=== PATIENT | female | born 1970 | race Caucasian/White ===

== ENCOUNTER 2020-08-20 07:40 | Outpatient (CLI) | payer OTHER, SELFPAY ==
--- NOTE | ~2020-08-20 | MM_ITS ---
EXAMINATION: MM screening cindy BI w lg HISTORY: Screening mammogram, family history of breast cancer in her mother. TECHNIQUE: Craniocaudal and mediolateral oblique 3-D tomosynthesis images were obtained and synthetic 2-D images were generated. CAD analysis was submitted and interpreted. COMPARISON: 08/06/2019, 09/22/2018, 09/20/2017, 09/13/2016 BREAST PARENCHYMAL COMPOSITION: The breasts are almost entirely fatty. FINDINGS: There are stable asymmetry in the outer right breast on the craniocaudal view. There is no evidence of suspicious mass, calcification, or architectural distortion to suggest malignancy in eith er breast. There has been no suspicious interval change. IMPRESSION: 1. No mammographic evidence of malignancy. 2. Recommend routine screening mammography in one year. BI-RADS Category 2: Benign finding(s). Reviewed, dictated and finalized at location A. ERLIGHT DEVELOPER
== END 2020-08-20 07:41 | disposition home or self-care (01) ==
PROVIDERS: PCP Family Medicine
DX: Z12.31 Encounter for screening mammogram for malignant neoplasm of breast (principal)
CPT/HCPCS: 77063; 77067

== ENCOUNTER 2021-12-24 07:53 | Outpatient (CLI) | payer OTHER, SELFPAY ==
--- NOTE | ~2021-12-24 | MM_ITS ---
EXAMINATION: MM screening cindy BI w lg HISTORY: Screening TECHNIQUE: Craniocaudal and mediolateral oblique 3-D tomosynthesis images were obtained and synthetic 2-D images were generated. CAD analysis was submitted and interpreted. COMPARISON: Comparison to multiple prior studies sequentially, with oldest reviewed study dated 09/09. BREAST PARENCHYMAL COMPOSITION: There are scattered areas of fibroglandular density. FINDINGS: There is no evidence of suspicious mass, calcification, or architectural distortion to sugg est malignancy in either breast. There has been no suspicious interval change. IMPRESSION: 1. No mammographic evidence of malignancy. 2. Recommend routine screening mammography in one year. BI-RADS Category 1: Negative Reviewed, dictated and finalized at location A.
== END 2021-12-24 07:54 | disposition home or self-care (01) ==
PROVIDERS: PCP Family Medicine; Visit Provider Family Medicine
DX: Z12.31 Encounter for screening mammogram for malignant neoplasm of breast (principal)
CPT/HCPCS: 77063; 77067

== ENCOUNTER 2023-07-11 07:16 | Outpatient (CLI) | payer BC, OTHER, SELFPAY ==
--- NOTE | ~2023-07-11 | MM_ITS ---
EXAMINATION: MM screening cindy BI w lg HISTORY: Screening mammogram TECHNIQUE: Craniocaudal and mediolateral oblique 3-D tomosynthesis images were obtained and synthetic 2-D images were generated. CAD analysis was submitted and interpreted. COMPARISON: 12/24/2021, 08/20/2020 bilateral screening mammogram examinations BREAST PARENCHYMAL COMPOSITION: The breasts are almost entirely fatty. FINDINGS: There is no evidence of suspicious mass, calcification, or architectural distortion to sugg est malignancy in either breast. There has been no suspicious interval change. IMPRESSION: 1. No mammographic evidence of malignancy. 2. Recommend routine screening mammography in one year. BI-RADS Category 1: Negative Reviewed, dictated and finalized at location A. ITY ASSURANCE INTERN
== END 2023-07-11 07:17 | disposition home or self-care (01) ==
LOC: ANHIMG 07:20
PROVIDERS: PCP Family Medicine; Visit Provider Family Medicine
DX: Z12.31 Encounter for screening mammogram for malignant neoplasm of breast (principal)
CPT/HCPCS: 77063; 77067

== ENCOUNTER 2024-12-26 07:45 | Outpatient (CLI) | payer BC, OTHER, SELFPAY ==
--- NOTE | ~2024-12-26 | MMUS_ITS ---
EXAMINATION: MM diagnostic cindy BI w lg, US breast BI complete HISTORY: Nipple discharge TECHNIQUE: Additional 3-D tomosynthesis images of the breasts were performed and synthetic 2-D images were generated. CAD analysis was submitted and interpreted. High resolution bilateral complete breas t ultrasound was performed. COMPARISON: Comparison to multiple prior studies sequentially, with oldest reviewed study dated 01/2018. BREAST PARENCHYMAL COMPOSITION: Not Dense: The breasts are almost entirely fatty. FINDINGS: MAMMOGRAPHIC FINDINGS: The breasts are stable. No new masses, calcifications or architectural distortion in either breast to suggest malignancy. ULTRASOUND: Complete US of all 4 quadrants of the breast/s and retroareolar region was reviewed. Normal heterogen eous echotexture without focal solid or cystic mass. IMPRESSION: 1. No evidence for malignancy in either breast. Recommend follow-up clinical management for nipple di scharge. 2. Routine yearly screening mammogram and regular clinical breast examination are recommended. BI-RADS Category 1: Negative Reviewed, dictated and finalized at location A. IMPRESSION: 1. No evidence for malignancy in either breast. Recommend follow-up clinical ma nagement for nipple discharge. 2. Routine yearly screening mammogram and regular clinical breast examination a re recommended. BI-RADS Category 1: Negative
--- OUTSIDE RECORDS SUMMARY | 2024-12-26 07:51 | XMS_ITS | Encounter Summary ---
Author Organization [employer] Address 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
--- OUTSIDE RECORDS SUMMARY | 2024-12-26 07:51 | XMS_ITS | Encounter Summary ---
Author Organization [employer] Address [address] [place] [address] Care Team Providers Care Volunteer Recruitment Coordinator Name Role Phone Frida Hurtado MD Primary Care Provider [phone] Encounter Details Date Type Department Care Team (Latest Contact Info) Description 01/10/1999 Inpatient Historical [facility] PATIENT IN A BED [place], Mireya Deborah, [facility] First-degree perineal laceration, with delivery (Primary Dx) Social History Tobacco Use Types Packs/Day Years Used Date Smoking Tobacco: Never Assessed Comments Unknown Sex and Gender Information Value Date Recorded Sex Assigned at Not on file 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
--- OUTSIDE RECORDS SUMMARY | 2024-12-26 07:51 | XMS_ITS | Data Portability ---
Author Organization [facility] [employer] , [facility] Address [address] [place] [address] Assessment No assessment recorded. Plan of Treatment Reminders Order Date Submit Date Provider Last Modified By Organization Details Last Modified Time Details Appointments None recorded. Lab HPV E6+E7 mRNA, qualitative PCR, cervix 2023 024 Ya[facility] Merrill, [address] [place], [address], 4 13:45:45 pap, LB 2023 024 [facility], [address] [place], [address], 4 17:28:44 HPV E6+E7 mRNA, qualitative PCR, cervix 2021 022 YaSabe Merrill, [address] [place], [address], 2 15:56:20 pap, LB 2021 022 [facility], [address] [place], [address], 2 08:14:56 Referral None recorded. Procedures None recorded. Surgeries None recorded. Imaging None recorded. Medication Orders None recorded. Patient TargetsNo targets recorded. Patient Instructions Encounter Date Encounter Id Patient Instructions Last Modified By Organization Details Last Modified Time 01/05/2022 [id number] learning about healthy weight Not available 01/05/2022 17:00:55 12/13/2023 [id number] Patient Health Questionnaire-9* [email or web address] Not available 12/20/2023 18:12:09 body mass index: care instructions Not available 12/13/2023 17:11:41 eating healthy foods: care instructions Not available 12/13/2023 17:11:41 general health care education Not available 12/13/2023 17:11:41 Reason for Referral None Reported. Results Created Date Observation Date Name Description Value Unit Range Abnormal Flag Note LastModifiedBy Organization Detail LastModifiedTime 12/16/19 24 12/16/2023 HPV HIGH RISK HPV high risk Negati ve negati ve normal The HPV High Risk assay is inten ded for use as co-te sting with cytol ogy and not as a subst itute for regul ar cervi neli cytol ogy scree santosh. This assay is not inten ded for use as a scree santosh devic e for women under age 30 with greta l cervi neli cytol ogy. Not Available [address], [address], 12/16/2023 13:45:44 01/07/20 22 01/08/2022 HPV HIGH RISK HPV high risk Negati ve negati ve normal The HPV High Risk assay is inten ded for use as co-te sting with cytol ogy and not as a subst itute for regul ar cervi neli cytol ogy scree santosh. This assay is not inten ded for use as a scree santosh devic e for women under age 30 with greta l cervi neli cytol ogy. Not Available [address], [address], 01/08/2022 15:56:19 01/07/20 22 01/13/2022 THINP REP TIS PAP clinical information: normal Infor matio n not provi ded Not Available [facility] [address] [place], [address], 01/13/2022 08:14:55 01/07/20 22 01/13/2022 THINP REP TIS PAP LMP: normal INFOR MATIO N NOT PROVI DED Not Available [facility] [address], [place], [address], 01/13/2022 08:14:55 01/07/20 22 01/13/2022 THINP REP TIS PAP prev. Pap: normal INFOR MATIO N NOT PROVI DED Not Available [address] [address] [place], [address], 01/13/2022 08:14:55 01/07/20 22 01/13/2022 THINP REP TIS PAP prev. BX: normal INFOR MATIO N NOT PROVI DED Not Available [address] [address] [address] , [place], [address], 01/13/2022 08:14:55 01/07/20 22 01/13/2022 THINP REP TIS PAP source: normal Cervi x Not Available [address] [place], [address], 01/13/2022 08:14:55 01/07/20 22 01/13/2022 THINP REP TIS PAP statement of adequacy: normal Satis facto ry for evalu ation . Endoc ervic al/tr ansfo rmati on zone compo nent prese nt. Age and/o r menst rual statu s not provi ded Not Available [address] [address] [place], [address], 01/13/2022 08:14:55 01/07/20 22 01/13/2022 THINP REP TIS PAP interpretati on/result: normal Negat maricruz for intra epith elial lesio n or malig ede . Not Available [address] [place], [address], 01/13/2022 08:14:55 01/07/2001/13/2022 THINP REP TIS PAP comment: normal This Pap test has been evalu ated with compu ter guilherme mauri techn ology . Not Available [address] [place], [address], 01/13/2022 08:14:55 01/07/20 22 01/13/2022 THINP REP TIS PAP cytotechnolo gist: normal KMS, CT( CP) CT Scree santosh locat ion: [address] [address] [place] [address] Not Available [address] [address] [place], [address], 01/13/2022 08:14:55 01/07/20 22 01/13/2022 THINP REP TIS PAP review cytotechnolo gist: normal LMT, CT( CP) CT scree santosh locat ion: [address] [address] [place] [address] Not Available [address] [address] [place], [address], 01/13/2022 08:14:55 01/07/20 22 01/13/2022 THINP REP TIS PAP comment EXPLA NATOR Y NOTE: The Pap is a scree santosh test for cervi neli cance r. It is not a diagn ostic test and is subje ct to false negat maricruz and false posit maricruz resul ts. It is most relia ble when a satis facto ry sampl e, regul vitaly obtai tr, is submi tted with relev ant clini neli findi ngs and histo ry, and when the Pap resul t is evalu ated along with histo joey and curre nt clini nlei infor matio n. Not Available [address] [address] , [place], [address], 01/13/2022 08:14:55 12/13/19 24 12/16/2023 THINP REP TIS PAP clinical information: normal None given Not Available [address] [address] [address] , [place], [address], 12/16/2023 17:28:44 12/13/19 24 12/16/2023 THINP REP TIS PAP LMP: normal None given Not Available [address] [address] [place], [address], 12/16/2023 17:28:44 12/13/19 24 12/16/2023 THINP REP TIS PAP prev. Pap: normal None given Not Available [address] [place], [address], 12/16/2023 17:28:44 12/13/19 24 12/16/2023 THINP REP TIS PAP prev. BX: normal None given Not Available [address] [place], [address], 12/16/2023 17:28:44 12/13/19 24 12/16/2023 THINP REP TIS PAP source: normal Cervi x Not Available [address], [address], 12/16/2023 17:28:44 12/13/19 24 12/16/2023 THINP REP TIS PAP statement of adequacy: normal Satis facto ry for evalu ation . Endoc ervic al/tr ansfo rmati on zone compo nent prese nt. Age and/o r menst rual statu s not provi ded Not Available [address], [address], 12/16/2023 17:28:44 12/13/19 24 12/16/2023 THINP REP TIS PAP interpretati on/result: normal Cytol ogy Resul ts: Negat maricruz for intra epith elial lesio n or malig ede . Not Available [address], [address], 12/16/2023 17:28:44 12/13/19 24 12/16/2023 THINP REP TIS PAP comment: normal This Pap test has been evalu ated with compu ter guilherme mauri techn ology . Not Available [address] [place], [address], 12/16/2023 17:28:44 12/13/19 24 12/16/2023 THINP REP TIS PAP cytotechnolo gist: normal ABC, CT( CP) CT scree santosh locat ion: [address] [address] [place] [address] Not Available [employer] [facility] [address] [address], [place], [address], 12/16/2023 17:28:44 12/13/19 24 12/16/2023 THINP REP TIS PAP comment EXPLA NATOR Y NOTE: The Pap is a scree santosh test for cervi neli cance r. It is not a diagn ostic test and is subje ct to false negat maricruz and false posit maricruz resul ts. It is most relia ble when a satis facto ry sampl e, regul vitaly obtai tr, is submi tted with relev ant clini neli findi ngs and histo ry, and when the Pap resul t is evalu ated along with histo joey and curre nt clini neli infor matio n. Not Available [employer] [facility] [address] [address], [place], [address], 12/16/2023 17:28:44 Result Notes None recorded. Procedures Surgical History Date Name Laterality Status Provider Name and Address Organization Details Recorded Time 4 Mirena IUD Removal completed Peg Zavaleta MD [address] [place] [address], [phone], [employer] [facility] 12/13/2023 17:11:11 4 Date of Last Pap Smear completed Peg Zavaltea MD [address] [place] [address], [phone], [employer] [facility] 12/24/2023 17:29:12 0 Gall bladder completed Alyx Quiñones [employer] [facility] [employer] [facility] 12/13/2023 16:15:57 Gall bladder completed Audrey Rangel [facility] [employer] [facility] 01/05/2022 16:01:11 Imaging Results None recorded. Procedure Notes None recorded. Medical Equipment None Reported. Allergies No known drug allergies Medications Name Sig Start Date Stop Date Status Note LastModified by Organization Details LastModified Time cyclobenzap rine 10 mg tablet 01/05 completed Not Available Not Available Not Available venlafaxine ER 75 mg capsule,ext ended release 24 hr active Not Available Not Available Not Available azithromyci n 250 mg tablet TAKE 2 TABLETS BY MOUTH ON DAY 1, AND THEN TAKE 1 TABLET BY MOUTH ONCE A DAY ON DAY 2 THROUGH DAY 5 12/12 completed Not Available Not Available Not Available metoprolol succinate ER 50 mg tablet,exte nded release 24 hr active Not Available Not Available Not Available phenazopyri dine 200 mg tablet TAKE ONE TABLET BY MOUTH IF NEEDED IN THE MORNING, AT NOON AND AT BEDTIME FOR BLADDER SPASMS FOR UP TO 2 DAYS. 01/05 completed Not Available Not Available Not Available peg-electro lyte solution 420 gram oral solution TAKE DIRECTED BY OFFICE 01/05 completed Not Available Not Available Not Available meloxicam 7.5 mg tablet 01/05 completed Not Available Not Available Not Available amoxicillin 875 mg tablet TAKE 1 TABLET BY MOUTH TWICE DAILY 12/12 completed Not Available Not Available Not Available cephalexin 500 mg capsule TAKE 1 CAPSULE BY MOUTH IN THE MORNING AND AT BEDTIME FOR 7 DAYS 01/05 completed Not Available Not Available Not Available promethazin e 25 mg tablet TAKE 1/2 (ONE HALF) TABLET BY MOUTH EVERY 6 HOURS NEEDED FOR NAUSEA 12/08 completed Not Available Not Available Not Available hydrochloro thiazide 25 mg tablet 25 mg every day by oral route. 2023 active Not Available Not Available Not Avai lable metoprolol succinate ER 25 mg tablet,exte nded release 24 hr Take 50 mg every day by oral route. 12/12 completed Not Available Not Available Not Available lisinopril 40 mg tablet active Not Available Not Available Not Available cefdinir 300 mg capsule TAKE 1 CAPSULE BY MOUTH EVERY 12 HOURS FOR 10 DAYS 12/12 completed Not Available Not Available Not Available metformin ER 500 mg tablet,exte nded release 24 hr active Not Available Not Available Not Available nitrofurant oin monohydrate /macrocryst als 100 mg capsule TAKE 1 CAPSULE BY MOUTH IN THE MORNING AND AT BEDTIME FOR 5 DAYS 01/05 completed Not Available Not Available Not Available Vitals Date Recorded Body height Body mass index (BMI) Body weight Systolic blood pressure Provider Name and Address Organization Details Last Updated DateTime 01/05/2022 172.72 cm 43.6 kg/m2 887244.01 g 287 mm[Hg] Audrey Rangel [facility] [employer] 01/05/2022 16:13:56 Date Recorded Body height Body mass index (BMI) Body weight Body temperature Systolic blood pressure Diastolic blood pressure Provider Name and Address Organization Details Last Updated DateTime 172.72 cm 42.9 kg/m2 241377. 05 g 97.3 [degF] 118 mm[Hg] 72 mm[Hg] Alyx Quiñones [place] [employer] 16:20:30 Social History Question Answer Notes LastModified by [employer] Details LastModified Time Tobacco Smoking Status Never Smoker Audrey Rangel [facility] [employer] 01/05/2022 16:01:08 How Many Years Have You Consumed Alcohol? 0 Information not available 12/13/2023 Are You Blind Or Do You Have Difficulty Seeing? No Information not available 12/13/2023 Are You Deaf Or Do You Have Serious Difficulty Hearing? No Information not available 12/13/2023 What Type Of Diet Are You Following? REGULAR [email or web address] Information not available 01/05/2022 What Is The Highest Grade Or Level Of School You Have Completed Or The Highest Degree You Have Received? [id number] Information not available 12/13/2023 How Many Children Do You Have? 2 Information not available 12/13/2023 Are There Any Occupational Health Risks Where You Work? No Information not available 12/13/2023 What Is Your Relationship Status? [email or web address] Information not available 01/05/2022 Are You Sexually Active? Yes [email or web address] Information not available 01/05/2022 Sex: Unknown Functional Status Question Answer Note LastModified by [employer] ion Details LastModified Time Do you use any illicit or recreational drugs? No Information not available 12/13/2023 What is your level of alcohol consumption? None [email or web address] Information not available 01/05/2022 Are you currently employed? 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 Never used electronic cigarettes [email or web address] Information not available 01/05/2022 What is your exercise level? None Information not available 01/05/2022 Mental Status None recorded. Family History Relationship Description Onset Age of this Age Resolved Age Notes LastModified by Organization Details LastModified Time Paternal Grandfather Cerebrovascu lar accident [email or web address] Not available 16:00:56 Maternal Grandmother Malignant neoplastic disease [email or web address] Not available 01/05 16:00:56 Maternal Grandmother Malignant neoplasm of uterus Not available 01/05 16:00:56 Father Malignant neoplastic disease [email or web address] Not available 01/05 16:00:56 Father Hypertensive disorder [email or web address] Not available 01/05 16:00:56 Mother Diabetes mellitus [email or web address] Not available 01/05 16:00:56 Mother Malignant tumor of breast [email or web address] Not available 01/05 16:00:56 Paternal Grandmother Heart disease Not available 01/05 16:00:56 Paternal Grandmother Myocardial infarction [email or web address] Not available 12/14 16:00:56 Medical History Condition Response Anxiety Disorder Y Autoimmune disease Y Gallbladder disease Y High Blood Pressure Y Gynecological History Statement/Question Response Date of last HPV 12/13/2023 Date of LMP 08/15/2006 HPV Vaccine N Duration of Flow (days) N-A Most Recent Mammogram Current Control Method IUD Age at Menarche 13 Date of Last Colonoscopy Most Recent Bone Density Frequency of Cycle (Q days) N-A Date of Last Pap Smear 12/13/2023 Obstetrics History GPAL:G 2 P 2 0 0 2 Type Value Full Term 2 Living 2 Total 2 Immunizations Vaccine Type Date Status Note Provider Nam e and Address Organization Details Recorded Time COVID-19, mRNA, LNP-S, PF, 100 mcg/0.5mL dose or 50 mcg/0.25mL dose 07/15/2023 completed Alyx Quiñones null, [facility] 12/13/2023 16:15:57 influenza, unspecified formulation 05/15/2023 completed Alyx [employer] null, [facility] 12/13/2023 16:15:57 Past Encounters Encounter ID Performer Location Encounter Start Date Encounter Closed Date Diagnosis/Indication Diagnosis SNOMED-CT Code Diagnosis ICD10 Code Diagnosis Note [id number] Peg Zavaleta MD [facility] [address] [place] [address] 01/05/2022 15:31:40 01/05/2022 17:11:55 Screening for malignant neoplasm of cervix 674922983 Z12.4 Gynecologi c examination 49021251 Z01.419 normal annual exam. discussed IUD and menopausal transition . Plan to keep the IUD in place. [id number] Peg Zavaleta MD [facility] [address] [place] [address] 12/13/2023 15:42:53 12/13/2023 17:56:31 Gynecologic examination 72494435 Z01.419 normal annual exam. discussed IUD and menopausal transition . IUD removed today Screening for malignant neoplasm of cervix 457912421 Z12.4 Depression screening 171 419031 Z13.31 refer to intake screening Patient en counter status 440822718 Z30.432 Mirena removed today, tolerated well Health Concerns Section Related Observation LastModified by Organization Detai ls LastModified Time None Recorded Concern Status LastModified by Organization Details LastModified Time None Recorded Advance Directives Directive None Recorded Payers Insurance Date Sequence Insurance Name Policy Number Policy Allison Covered Member ID Allison Member ID Guarantor Name 12/14/2023 2 [facility] [id number] Yvonne Hale [id number] Oriana Geoffrey 12/14/2023 1 [place] [id number] Oriana Geoffrey [id number] Oriana Geoffrey Notes Date Note Type Note Provider Name and Address Organization Details Recorded Time 01/05/2022 text/html Oriana is coming i n for her annual exam. her former doctor was in [facility], and she has a Mirena in place. This was placed 5 yr ago and it is her fourth one. She is 51 and starting to have some hot flashes. Does not bleed at all. Does not sleep well, but that is normal for her. She is planning to keep the IUD in place. Peg Zavaleta MD [address] [place] [address], [place], [address], [facility] [employer] [facility] 01/05/2022 17:03:11 12/13/2023 text/html Oriana in office today for annual and to discuss removal of mirena.She is 53 and has not had a period in years. She has hot flashes daily. No other symptomsShe is up to date on pap and mmg Peg Zavaleta MD [facility], [place], [address], [facility] [employer] [facility] 12/13/2023 17:14:17 OBGyn Episode No OBEpisode recorded.
--- OUTSIDE RECORDS SUMMARY | 2024-12-26 07:51 | XMS_ITS | Clinical Summary ---
Author Organization [facility] Address [address] [place] [address] Care Team Providers Care Wood Milling Machine Operator Name Role Phone Aissatou Meza MD Primary Care Provider [phone] Social History Tobacco Use Types Packs/Day Years Used Date Smoking Tobacco: Never Assessed Comments Unknown Sex and Gender Information Value Date Recorded Sex Assigned at Female 09/06/2024 2:36 PM PRODUCT SUPPORT TECHNICIAN Legal Sex Female 6:08 PM CDT Gender Identity Not on file Sexual Orientation Not on file Plan of Treatment Health Maintenance Due Date Last Done Comments Cervical Cancer Screening Pap Smear (Age 30 to 64) Every 3 Years 1969 Colorectal Cancer Screening Colonoscopy (10 Years) 1969 Annual Physical 1972 Hepatitis C 11/11/1987 DTaP, Tdap and Td Vaccines (1 - Tdap) 1988 Hepatitis B Vaccines (1 of 3 - 19+ 3-dose series) 1988 Cervical Cancer Screening Pap with HPV Testing (Age 30 to 64) Every 5 Years 11/11/1999 Cervical Cancer Screening with HPV 11/11/1999 Pneumococcal Vaccine: 50+ Years (1 of 1 - PCV) 11/11/2019 Zoster Vaccines (1 of 2) 11/11/2019 Mammogram Screening 08/20/2022 08/20/2020, 08/06/2019, 09/20/2017, Additional history exists COVID-19 Vaccine ( season) 2024 07/15/2023, 08/02/2021, 10/17/2020 Meningococcal B Vaccine Aged Out No l onger eligible based on patient's age to complete this topic Meningococcal Vaccine Aged Out No tony celeste eligible based on patient's age to complete this topic RSV Immunizations Under 20 Months Aged Out No longer eligible based on patient's age to complete this topic Insurance [facility] Care Teams Wood Milling Machine Operator Relationship Specialty Start Date End Date Aissatou Meza MD [address] [facility] [address] [place] [address] PCP - General 06/28/13
--- OUTSIDE RECORDS SUMMARY | 2024-12-26 07:51 | XMS_ITS | Encounter Summary ---
Author Organization [employer] Address [address] [place] [address] Care Team Providers Care Boat Builder And Repairer Name Role Phone Frida Hurtado MD Primary Care Provider [phone] Encounter Details Date Type Department Care Team (Latest Contact Info) Description 10/30/2001 Outpatient Historical HIS PATIENT IN A BED [place], Mireya Neptalifrederic, [facility] THRT MICHAEL LABOR-ANTEPART (Primary Dx) Social History Tobacco Use Types Packs/Day Years Used Date Smoking Tobacco: Never Assessed Comments Unknown Sex and Gender Information Value Date Recorded Sex Assigned at Not on file Legal Sex Female 3:25 AM BARIATRIC COORDINATOR Gender Identity Not on file Sexual Orientation Not on file documented as of this encounter Plan of Treatment Not on file documented as of this encounter Visit Diagnoses Diagnosis Threatened premature labor, antepartum(644.03)- Primary Threatened premature labor, antepartum documented in this encounter Care Teams Boat Builder And Repairer Relationship Specialty Start Date End Date Frida Hurtado MD PCP - General 08/05/15 documented as of this encounter
--- OUTSIDE RECORDS SUMMARY | 2024-12-26 07:51 | XMS_ITS | Clinical Summary ---
Author Organization [facility] Address [address] [place] [address] Care Team Providers Care Police Surgeon Name Role Phone Mireya Fleming MD Unavailable [phone] Aissatou Meza MD Primary Care Provider [phone] Source Comments [facility],non-owned Affiliates and Associated Physician Practices is amultiple site organization consisting of ambulatory clinics and hospital sitesin [place], [place], [place] and [place]. This disclosure is being madepursuant to the Care Everywhere program and may not contain all information available regarding this patient. Last updated 18.[facility] Allergies No known active allergies Medications * Be aware that medications may not be up to date on this document. Alwaysverify current medications with the patient. lisinopril (PRINIVIL; ZESTRIL) 40 MG tablet Take 40 mg by mouth once daily. Active venlafaxine XR 24hr (EFFEXOR XR) 75 MG capsule Take 75 mg by mouth once daily. Active Levonorgestrel (MIRENA IU) by Intrauterine route. Active fluticasone propionate (FLONASE) 50 MCG/ACT nasal spray [place] 2 Sprays into each nostril once daily. Active Active Problems Problem Noted Date Diagnosed Date Class 3 severe obesity in adult 08/20/2020 IUD (intrauterine device) in place 05/11/2013 Overview (05/11/2013): Placed 10/2011 due out 10/2016 Hypertension 10/23/2012 OCD (obsessive compulsive disorder) 10/23/2012 Family History Medical History Relation Name Comments Hypertension Father Lymphoma Father Cancer Maternal Grandmother uterine Cancer - Breast Mother Diabetes Mother CVA Paternal Grandfather Cancer Paternal Grandmother lymphom a Ankylosing Spondylitis Son Relation Name Status Comments Brother Alive Father Alive Maternal Grandfather Maternal Grandmother Mother Alive Paternal Grandfather Paternal Grandmother Son Alive Social History Tobacco Use Types Packs/Day Years Used Date Smoking Tobacco: Never Smokeless Tobacco: Never Alcohol Use Standard Drinks/Week Comments No 0 (1 standard drink = 0.6 oz pur e alcohol) Comments No Sex and Gender Information Value Date Recorded Sex Assigned at Not on file Legal Sex Female 6:02 AM RECONCILER Gender Identity Not on file Sexual Orientation Not on file Last Filed Vital Signs Vital Sign Reading Time Taken Comments Blood Pressure 120/84 08/20/2020 10:36 AM RECONCILER Pulse 74 05/30/2013 11:22 AM CDT Temperature - - Respiratory Rate - - Oxygen Saturation - - Inhaled Oxygen Concentration - - Weight 130.3 kg (287 lb 3.2 oz) 021 10:36 AM RECONCILER Height 170.2 cm (5' 7 ) 08/20/2020 10:3 6 AM RECONCILER Body Mass Index 44.98 08/20/2020 10:36 AM RECONCILER Plan of Treatment Health Maintenance Due Date Last Done Comments COLOGUARD (AGES 45-75) - COLON CA SCREENING 1969 COLON MONITORING 1969 COLONOSCOPY - COLON CA SCREENING 1969 CT COLONOGRAPHY - COLON CA SCREENING 1969 Colorectal Cancer Screening 1969 FIT - COLON CA SCREENING 1969 FLEX SIG - COLON CA SCREENING 1969 LIPID TESTING 1969 HIV SCREENING 1984 HEPATITIS C SCREENING 11/06/1987 DTAP/TDAP/TD VACCINES (1 - Tdap) 1988 HEPATITIS B VACCINE (1 of 3 - 19+ 3-dose series) 1988 PNEUMOCOCCAL VACCINE 50+ (1 of 1 - PCV) 11/11/2019 ZOSTER VACCINE (1 of 2) 11/11/2019 SCREENING FOR DIABETES 08/20/2020 MAMMOGRAM 08/20/2021 08/20/2020, 03/2019 (Done Outside Per Patient), 09/20/2017, Additional history exists PAP with HPV 09/22/2023 09/22/2018, 08/16, 05/14/2013 COVID-19 VACCINE ( season) 2024 DEPRESSION SCREENING 08/15/2024 INFLUENZA VACCINE (Season Ended) 2025 HIB VACCINE Aged Out No longer eligi ble based on patient's age to complete this topic HPV VACCINE Aged Out No longer eligi ble based on patient's age to complete this topic MENINGOCOCCAL (Group B) VACCINE SHARED DECISION-MAKING Aged Out No longer eligible based on patient's age to complete this topic MENINGOCOCCAL GROUPS A/C/Y/W VACCINE Aged Out No longer eligible based on patient's age to complete this topic Procedures Procedure Name Priority Date/Time Associated Diagnosis Comments MAMMO BILAT SCREENING Routine 08/20/2020 Well woman exam PAP IG LB +HPV APTIMA REFLEX 16,18/45 Routine 09/22/2018 11:34 AM RECONCILER Well woman exam Special screening examination for human papillomavirus (HPV) from Last 3 Months or Most Recently Relevant to Health Maintenance Results * MAMMO BILAT SCREENING (08/20/2020) Anatomical Region Laterality Modality Breast Bilateral Mammography Padilla Thomas CONFIDENTIAL INVESTIGATOR-HARDWOOD FINISHER MAMMO ORDERABLES Final Re sult * PAP IG LB +HPV APTIMA REFLEX 16,18/45 (09/22/2018 11:34 AM RECONCILER) Diagnosis [facility] ACCOUNT BILL Comment:NEGATIVE FOR INTRAEP ITHELIAL LESION OR MALIGNANCY. Specimen Adequacy [facility] ACCOUNT BILL Comment: Satisfactory for evaluation. Endocervical and/or squamous metaplastic cells (endocervical component) are present. Clinician Provided ICD10 [facility] ACCOUNT BILL Comment: Z01.419 Z11.51 Performed by [facility] ACCOUNT BILL Comment:Jocelyn Smith hnologist (ASCP) Comment . [facility] ACCOUNT BILL Note [facility] ACCOUNT BILL Comment: The Pap smear is a screening test designed to aid in the detection of premalignant and malignant conditions of the uterine cervix. It is not a diagnostic procedure and should not be used as the sole means of detecting cervical cancer. Both false-positive and false-negative reports do occur. . IGLBP CPT Code Automation [facility] ACCOUNT BILL Comment: This liquid based ThinPrep(R) pap test was screened with the use of an image guided system. Human papillomavirus Aptima Negative Negative [facility] ACCOUNT BILL Comment: This test detects fourteen high-risk HPV types (16/18/31/33/35/39/45/ 51/52/56/58/59/66/68) without differentiation. ENTIRE ENDOCERVIX / Unknown 09/22/2018 11:34 AM RECONCILER 09/25/2018 Narrative [facility] ACCOUNT BILL - 09/26/2018 1:12 PM RECONCILER Source.............Endocervix No. of containers..01 ThinPrep Vial Resulting Agency Comment [facility] [address] [place] [address] Kasandra Reardon W [id number] Padilla Thomas CONFIDENTIAL INVESTIGATOR-HARDWOOD FINISHER LAB - PATHOLOGY/CYTOLOGY ORDERABLES Final Result Performing Organization Address City/State/[facility] Co de Phone Number [facility] ACCOUNT BILL [address] [place] [address] from Last 3 Months or Most Recently Relevant to Health Maintenance Insurance [facility] Care Teams Police Surgeon Relationship Specialty [place] [address] [place] [address] PCP - General Family Medicine 09/13/16 [place] [address] [place] [address] Licensed Practical Nurse Clinic Nurse Obstetrics and Gynecology 10/23/12
--- OUTSIDE RECORDS SUMMARY | 2024-12-26 07:51 | XMS_ITS | Encounter Summary ---
Author Organization [facility] Address [address] [place] [address] Care Team Providers Care Roller Setter Name Role Phone Frida Hurtado MD Primary Care Provider [phone] Encounter Details Date Type Department Care Team (Latest Contact Info) Description 12/06/1998 Outpatient Historical HIS OBSERVATION BED Mireya Fleming, [facility] Other specified complication, antepartum(646.83) (Primary Dx) Social History Tobacco Use Types Packs/Day Years Used Date Smoking Tobacco: Never Assessed Comments Unknown Sex and Gender Information Value Date Recorded Sex Assigned at Not on file Legal Sex Female 3:25 AM CADASTRAL ENGINEER Gender Identity Not on file Sexual Orientation Not on file documented as of this encounter Plan of Treatment Not on file documented as of this encounter Visit Diagnoses Diagnosis Other specified complication, antepartum(646.83)- Primary Other specified complication, antepartum documented in this encounter Care Teams Roller Setter Relationship Specialty Start Date End Date Frida Hurtado MD PCP - General 08/05/15 documented as of this encounter
--- OUTSIDE RECORDS SUMMARY | 2024-12-26 07:51 | XMS_ITS | Encounter Summary ---
Author Organization [employer] Address [address] [place] [address] Care Team Providers Care Forming Yardage Control Operator Name Role Phone Frida Hurtado MD Primary Care Provider [phone] Encounter Details Date Type Department Care Team (Latest Contact Info) Description 11/25/1998 Outpatient Historical HIS OBSERVATION BED Mireya Fleming, [facility] Decreased movements, affecting management of mother, antepartum (Primary Dx) Social History Tobacco Use Types Packs/Day Years Used Date Smoking Tobacco: Never Assessed Comments Unknown Sex and Gender Information Value Date Recorded Sex Assigned at Not on file Legal Sex Female 3:25 AM RECLAMATION ENGINEER Gender Identity Not on file Sexual Orientation Not on file documented as of this encounter Plan of Treatment Not on file documented as of this encounter Visit Diagnoses Diagnosis Decreased movements, affecting management of mother, antepartum- Primary documented in this encounter Care Teams Forming Yardage Control Operator Relationship Specialty Start Date End Date Frida Hurtado MD PCP - General 08/05/15 documented as of this encounter
--- OUTSIDE RECORDS SUMMARY | 2024-12-26 07:51 | XMS_ITS | Encounter Summary ---
Author Organization [employer] Address [address] [place] [address] Care Team Providers Care Neurosurgical Physician Assistant Name Role Phone Frida Hurtado MD Primary Care Provider [phone] Encounter Details Date Type Department Care Team (Latest Contact Info) Description 08/01/[address] [facility] Mireya Fleming, [facility] SUPERVIS OTHER NORMAL PREG (Primary Dx) Social History Tobacco Use Types Packs/Day Years Used Date Smoking Tobacco: Never Assessed Comments Unknown Sex and Gender Information Value Date Recorded Sex Assigned at Not on file Legal Sex Female 3:25 AM ROOFER APPLICATOR Gender Identity Not on file Sexual Orientation Not on file documented as of this encounter Plan of Treatment Not on file documented as of this encounter Visit Diagnoses Diagnosis Supervision of other normal - Primary documented in this encounter Care Teams Neurosurgical Physician Assistant Relationship Specialty Start Date End Date Frida Hurtado MD PCP - General 08/05/15 documented as of this encounter
--- OUTSIDE RECORDS SUMMARY | 2024-12-26 07:51 | XMS_ITS | Encounter Summary ---
Author Organization [facility] Address [facility] [place] [address] Care Team Providers Care Gas Meter Mechanic Name Role Phone Aissatou Meza MD Primary Care Provider [phone] Encounter Details Date Type Department Care Team (Late st Contact Info) Description 10/12/2021 [facility], [address] [address] Anibal Rodriguez MA Social History Tobacco Use Types Packs/Day Years Used Date Smoking Tobacco: Never Assessed Comments Unknown Sex and Gender Information Value Date Recorded Sex Assigned at Female 09/06/2024 2:36 PM AIR GUN OPERATOR Legal Sex Female 6:08 PM CDT Gender Identity Not on file Sexual Orientation Not on file documented as of this encounter Plan of Treatment Not on file documented as of this encounter Procedures Procedure Name Priority Date/Time Associated Diagnosis Comments COMPREHENSIVE METABOLIC PANEL Routine 10/24/2020 LIPID PANEL Routine 10/24/2020 HEMOGLOBIN, GLYCOSYLATED Routine 10/24/2020 documented in this encounter Results * HEMOGLOBIN, GLYCOSYLATED (10/24/2020) Pathologist [facility] HGB A1C 5.9 % 10/24/2020 us Doc [facility] Final Result * LIPID PANEL (10/24/2020) CHOLESTEROL 183 HDL 55 TRIGLYCERIDES 100 LDL (CALCULATED) 110 10/24/2020 us Doc [facility] Final Result * COMPREHENSIVE METABOLIC PANEL (10/24/2020) SODIUM S/P/B 140 POTASSIUM S/P/B 4.4 CO2 22 CHLORIDE S/P/B 105 GLUCOSE 96 mg/dL CALCIUM S/P/B 9.3 BUN 14 CREATININE S/P/B 0.92 0.5 - 1.0 EGFR AFR. AMER. 84 <=90 EGFR NON-AFR. AMER. 73 <=90 ALKALINE PHOSPHATASE S/P/B 82 ALT 27 AST 24 BILIRUBIN TOTAL S/P/B 0.4 ALBUMIN S/P/B 4.3 3.5 - 5.0 TOTAL PROTEIN S/P/B 7.6 GLOBULIN 3.3 10/24/2020 us Doc [facility] Final Result documented in this encounter Visit Diagnoses Not on filedocumented in this encounter Care Teams Gas Meter Mechanic Relationship Specialty Start Date End Date Aissatou Meza MD [address] [address] PCP - General 06/28/13 documented as of this encounter
--- OUTSIDE RECORDS SUMMARY | 2024-12-26 07:52 | XMS_ITS | Clinical Summary ---
Author Organization [facility] Address [address] [place] [address] Care Team Providers Care Coating Machine Helper Name Role Phone Frida Hurtado MD Primary Care Provider Social History Tobacco Use Types Packs/Day Years Used Date Smoking Tobacco: Never Assessed Comments Unknown Sex and Gender Information Value Date Recorded Sex Assigned at Not on file Legal Sex Female 3:25 AM MIXER BLENDER Gender Identity Not on file Sexual Orientation Not on file Plan of Treatment Health Maintenance Due Date Last Done Comments DTAP/TDAP/TD VACCINES (1 - Tdap) 1988 HEPATITIS B VACCINES (1 of 3 - 19+ 3-dose series) 1988 HPV/Cotest (21-29) 1990 CERVICAL CANCER SCREENING 11/11/1999 HPV/Cotest (30-65) 11/11/1999 PAP SMEAR 11/11/1999 COLORECTAL SCREENING 2014 Colorectal Cancer Screening 2014 FIT-DNA Q 3 years 2014 FIT/FOBT Q 1 year 2014 Flex Sig/CT Colonography Q 5 years 2014 ZOSTER VACCINE (1 of 2) 11/11/2019 BREAST CANCER SCREENING 08/20/2021 08/20/19 21, 08/06/2019, 09/20/2017, Additional history exists INFLUENZA VACCINE (#1) 2024 Insurance [facility] [employer] [id number] Care Teams Coating Machine Helper Relationship Specialty Start Date End Date Frida Hurtado MD PCP - General 08/05/15
--- OUTSIDE RECORDS SUMMARY | 2024-12-26 07:52 | XMS_ITS | Continuity of Care Document ---
Author Organization [facility] Address [address] [facility] [address] [place] [address] Phone Care Team Providers Care Bistro Attendant Name Role Phone Ca Tenorio Unavailable Unavailable Procedures Procedure Date Office/outpatient Visit, [facility] Advance Directives Directive Yes / No Effective Date File Name No Information Encounters Encounter Description Practice Location Reason(s) For Visit Diagnoses Date Provider Providers Copied on Encounter Office/outpat ient Visit, [facility], [address], [place], [place], [id number], [place] tel:[phone] [facility] No Information [address] , [address], [place], [address], [place]. tel:[phone] Family History Family Member Type Diagnosis Age At Onset No Information Payers Payer name Insurance type Covered green party ID Authoriza tion(s) No Information Social History Type Description Quantity Date Captured Comments Sex Female Smoking Status No Information Chief Complaint And Reason For Visit No Information Reason For Referral Reason For Referral No Information History Of Present Illness Encounter Date Complaint History Of Prese nt Illness No Information Functional Status Date Functional Assessmen t No Information Instructions Date Instruction Additional Infor mation No Information Assessments Type Assessment Date No Information Patient Care Teams Name Effective Dates (start - stop) Status Members No Information
--- OUTSIDE RECORDS SUMMARY | 2024-12-26 07:52 | XMS_ITS | Encounter Summary ---
Author Organization [employer] Address [address] [place] [address] Care Team Providers Care Sand Caster Name Role Phone Frida Hurtado MD Primary Care Provider [phone] Encounter Details Date Type Department Care Team (Latest Contact Info) Description 01/01/2002 Inpatient Historical HIS PATIENT IN A BED Bernadette Mireya Neptalifrederic, [facility] [address] LACERAT-DEL (Primary Dx) Social History Tobacco Use Types Packs/Day Years Used Date Smoking Tobacco: Never Assessed Comments Unknown Sex and Gender Information Value Date Recorded Sex Assigned at Not on file Legal Sex Female 3:25 AM HEALTH DIAGNOSTICS TEACHER Gender Identity Not on file Sexual Orientation Not on file documented as of this encounter Plan of Treatment Not on file documented as of this encounter Visit Diagnoses Diagnosis First-degree perineal laceration, with delivery- Primary documented in this encounter Care Teams Sand Caster Relationship Specialty Start Date End Date Frida Hurtado MD PCP - General 08/05/15 documented as of this encounter
== END 2024-12-26 07:46 | disposition home or self-care (01) ==
PROVIDERS: PCP Family Medicine; Visit Provider Obstetrics & Gynecology
DX: Z12.31 Encounter for screening mammogram for malignant neoplasm of breast (principal); N64.52 Nipple discharge
CPT/HCPCS: 76641; 77062; 77066; G0279

== ENCOUNTER 2024-12-26 10:23 | Outpatient (CLI) | payer BC, OTHER, SELFPAY ==
--- OUTSIDE RECORDS SUMMARY | 2024-12-26 10:46 | XMS_ITS | Clinical Summary ---
Author Organization [facility] Address [address] [place] [address] Care Team Providers Care Solutions Sales Consultant Name Role Phone Frida Hurtado MD Primary Care Provider Social History Tobacco Use Types Packs/Day Years Used Date Smoking Tobacco: Never Assessed Comments Unknown Sex and Gender Information Value Date Recorded Sex Assigned at Not on file Legal Sex Female 3:25 AM BUTCHER ASSISTANT Gender Identity Not on file Sexual Orientation [...] history exists INFLUENZA VACCINE (#1) 2024 Insurance [facility] [employer] [id number] Care Teams Solutions Sales Consultant Relationship Specialty Start Date End Date Frida Hurtado MD PCP - General 08/05/15
--- OUTSIDE RECORDS SUMMARY | 2024-12-26 10:46 | XMS_ITS | Encounter Summary ---
Author Organization [employer] Address [address] [place] [address] Care Team Providers Care Loading Machine Operator Name Role Phone Frida Hurtado MD Primary Care Provider [phone] Encounter Details Date Type Department Care Team (Latest Contact Info) Description 11/25/1998 Outpatient Historical HIS OBSERVATION BED Mireya Fleming, [facility] Decreased movements, affecting management of mother, antepartum (Primary Dx) Social History Tobacco Use Types Packs/Day Years Used Date Smoking Tobacco: Never Assessed Comments Unknown Sex and Gender Information Value Date Recorded Sex Assigned at Not on file Legal Sex Female 3:25 AM SHEET MILL SUPERVISOR Gender Identity Not on file Sexual Orientation Not on file documented as of this encounter Plan of Treatment Not on file documented as of this encounter Visit Diagnoses Diagnosis Decreased movements, affecting management of mother, antepartum- Primary documented in this encounter Care Teams Loading Machine Operator Relationship Specialty Start Date End Date Frida Hurtado MD PCP - General 08/05/15 documented as of this encounter
--- OUTSIDE RECORDS SUMMARY | 2024-12-26 10:46 | XMS_ITS | Encounter Summary ---
Author Organization [employer] Address [address] [place] [address] Care Team Providers Care Oracle Database Administrator Name Role Phone Frida Hurtado MD Primary Care Provider [phone] Encounter Details Date Type Department Care Team (Latest Contact Info) Description 12/06/1998 Outpatient Historical HIS OBSERVATION BED Mireya Fleming, [facility] Other specified complication, antepartum(646.83) (Primary Dx) Social History Tobacco Use Types Packs/Day Years Used Date Smoking Tobacco: Never Assessed Comments Unknown Sex and Gender Information Value Date Recorded Sex Assigned at Not on file Legal Sex Female 3:25 AM NATIONAL ACCOUNTS SALES Gender Identity Not on file Sexual Orientation Not on file documented as of this encounter Plan of Treatment Not on file documented as of this encounter Visit Diagnoses Diagnosis Other specified complication, antepartum(646.83)- Primary Other specified complication, antepartum documented in this encounter Care Teams Oracle Database Administrator Relationship Specialty Start Date End Date Frida Hurtado MD PCP - General 08/05/15 documented as of this encounter
--- OUTSIDE RECORDS SUMMARY | 2024-12-26 10:46 | XMS_ITS | Continuity of Care Document ---
Author Organization [facility] Address [address] [facility] [facility] [address] [place] [address] Phone Care Team Providers Care Manager Retail Store Name Role Phone Ca Tenorio Unavailable Unavailable Procedures Procedure Date Office/outpatient Visit, [facility] Advance Directives Directive Yes / No Effective Date File Name No Information Encounters Encounter Description Practice Location Reason(s) For Visit Diagnoses Date Provider Providers Copied on Encounter Office/outpat ient Visit, [facility], [address], [place], [place], [id number], [place] tel:[phone] [facility] No Information [address] , [address], [place], [address], [place]. tel:[phone] Family History Family Member Type Diagnosis Age At Onset No Information Payers Payer name Insurance type Covered alliance party ID Authoriza tion(s) No Information Social [...]
--- OUTSIDE RECORDS SUMMARY | 2024-12-26 10:46 | XMS_ITS | Encounter Summary ---
Author Organization [employer] Address [address] [place] [address] Care Team Providers Care Blood Donor Recruiter Name Role Phone Frida Hurtado MD Primary Care Provider [phone] Encounter Details Date Type Department Care Team (Latest Contact Info) Description 08/13/1998 Outpatient Historical [facility] Mireya Fleming, [facility] Supervision of other normal (Primary Dx) Social History Tobacco Use Types Packs/Day Years Used Date Smoking Tobacco: Never Assessed Comments Unknown Sex and Gender Information Value Date Recorded Sex Assigned at Not on file Legal Sex Female 3:25 AM CUT OFF SAW OPERATOR PIPE BLANKS Gender Identity Not on file Sexual Orientation Not on file documented as of this encounter Plan of Treatment Not on file documented as of this encounter Visit Diagnoses Diagnosis Supervision of other normal - Primary documented in this encounter Care Teams Blood Donor Recruiter Relationship Specialty Start Date End Date Frida Hurtado MD PCP - General 08/05/15 documented as of this encounter
--- OUTSIDE RECORDS SUMMARY | 2024-12-26 10:46 | XMS_ITS | Encounter Summary ---
Author Organization [employer] Address [address] [place] [address] Care Team Providers Care Healthcare Manager Name Role Phone Frida Hurtado MD Primary Care Provider [phone] Encounter Details Date Type Department Care Team (Latest Contact Info) Description 01/01/2002 Inpatient Historical HIS PATIENT IN A BED Bernadette Mireya Neptalifrederic, [facility] DEL W 1 DEG LACERAT-DEL (Primary Dx) Social History Tobacco Use Types Packs/Day Years Used Date Smoking Tobacco: Never Assessed Comments Unknown Sex and Gender Information Value Date Recorded Sex Assigned at Not on file Legal Sex Female 3:25 AM MANAGER OF HOSPITAL Gender Identity Not on file Sexual Orientation Not on file documented as of this encounter Plan of Treatment Not on file documented as of this encounter Visit Diagnoses Diagnosis First-degree perineal laceration, with delivery- Primary documented in this encounter Care Teams Healthcare Manager Relationship Specialty Start Date End Date Frida Hurtado MD PCP - General 08/05/15 documented as of this encounter
--- OUTSIDE RECORDS SUMMARY | 2024-12-26 10:46 | XMS_ITS | Encounter Summary ---
Author Organization [facility] Address [facility] [place] [address] Care Team Providers Care Baseball Glove Shaper Name Role Phone Aissatou Meza MD Primary Care Provider Encounter Details Date Type Department Care Team (Late st Contact Info) Description 10/12/2021 Abstract [facility], [address] [address] Anibal Rodriguez MA Social History Tobacco Use Types Packs/Day Years Used Date Smoking Tobacco: Never Assessed Comments Unknown Sex and Gender Information Value Date Recorded Sex Assigned at Female 09/06/2024 2:36 PM REGISTERED NURSING PROFESSOR Legal Sex Female 6:08 PM CDT Gender Identity Not on file Sexual Orientation Not on file documented as of this encounter Plan of Treatment Not on file documented as of this encounter Procedures Procedure Name Priority Date/Time Associated Diagnosis Comments COMPREHENSIVE METABOLIC PANEL Routine 10/24/2020 LIPID PANEL Routine 10/24/2020 HEMOGLOBIN, GLYCOSYLATED Routine 10/24/2020 documented in this encounter Results * HEMOGLOBIN, GLYCOSYLATED (10/24/2020) Pathologist [facility] HGB A1C 5.9 % 10/24/2020 us Doc [...] on filedocumented in this encounter Care Teams Baseball Glove Shaper Relationship Specialty Start Date End Date Aissatou Meza MD [address] [address] PCP - General 06/28/13 documented as of this encounter
--- OUTSIDE RECORDS SUMMARY | 2024-12-26 10:46 | XMS_ITS | Encounter Summary ---
Author Organization [employer] Address 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
--- OUTSIDE RECORDS SUMMARY | 2024-12-26 10:46 | XMS_ITS | Clinical Summary ---
Author Organization [facility] Address [address] [place] [address] Care Team Providers Care Tip Puncher Name Role Phone Aissatou Meza MD Primary Care Provider [phone] Social History Tobacco Use Types Packs/Day Years Used Date Smoking Tobacco: Never Assessed Comments Unknown Sex and Gender Information Value Date Recorded Sex Assigned at Female 09/06/2024 2:36 PM CLINICAL TRAINING COORDINATOR Legal Sex Female 6:08 PM CDT Gender [...] patient's age to complete this topic Insurance [facility] Care Teams Tip Puncher Relationship Specialty Start Date End Date Aissatou Meza MD [address] [facility] [address] [place] [address] PCP - General 06/28/13
--- OUTSIDE RECORDS SUMMARY | 2024-12-26 10:46 | XMS_ITS | Encounter Summary ---
Author Organization [employer] Address 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
--- OUTSIDE RECORDS SUMMARY | 2024-12-26 10:46 | XMS_ITS | Clinical Summary ---
Author Organization [facility] Address [address] [facility] [place] [address] Care Team Providers Care Cost Control Specialist Name Role Phone Mireya Fleming MD Unavailable [phone] Aissatou Meza MD Primary Care Provider [phone] Source Comments [facility],non-owned Affiliates and Associated Physician Practices is amultiple site organization consisting of ambulatory clinics and hospital sitesin [place], [place]. This disclosure is being madepursuant to the Care Everywhere program and may not contain all information available regarding this patient. Last updated 18.[facility] Allergies No known active allergies Medications * [...] fluticasone propionate (FLONASE) 50 MCG/ACT nasal spray [place] 2 Sprays into each nostril once daily. [...] on file Legal Sex Female 6:02 AM SASH ASSEMBLER Gender Identity Not on file Sexual Orientation Not on file Last Filed Vital Signs Vital Sign Reading Time Taken Comments Blood Pressure 120/84 08/20/2020 10:36 AM SASH ASSEMBLER Pulse 74 05/30/2013 11:22 AM CDT Temperature - - Respiratory Rate - - Oxygen Saturation - - Inhaled Oxygen Concentration - - Weight 130.3 kg (287 lb 3.2 oz) 021 10:36 AM SASH ASSEMBLER Height 170.2 cm (5' 7 ) 08/20/2020 10:3 6 AM SASH ASSEMBLER Body Mass Index 44.98 08/20/2020 10:36 AM SASH ASSEMBLER Plan of Treatment Health Maintenance Due Date [...] APTIMA REFLEX 16,18/45 Routine 09/22/2018 11:34 AM SASH ASSEMBLER Well woman exam Special screening examination for human papillomavirus (HPV) from Last 3 Months or Most Recently Relevant to Health Maintenance Results * MAMMO BILAT SCREENING (08/20/2020) Anatomical Region Laterality Modality Breast Bilateral Mammography Padilla Thomas MATERIALS HANDLING EQUIPMENT OPERATOR-LABORER ROAD MAMMO ORDERABLES Final Re sult * PAP IG LB +HPV APTIMA REFLEX 16,18/45 (09/22/2018 11:34 AM SASH ASSEMBLER) Diagnosis [facility] ACCOUNT BILL Comment:NEGATIVE FOR INTRAEP [...] ENTIRE ENDOCERVIX / Unknown 09/22/2018 11:34 AM SASH ASSEMBLER 09/25/2018 Narrative [facility] ACCOUNT BILL - 09/26/2018 1:12 PM SASH ASSEMBLER Source.............Endocervix No. of containers..01 ThinPrep Vial Resulting Agency Comment [facility] [address] [place] [address] Kasandra Reardon W [id number] Padilla Thomas MATERIALS HANDLING EQUIPMENT OPERATOR-LABORER ROAD LAB - PATHOLOGY/CYTOLOGY ORDERABLES Final Result Performing Organization Address City/State/[facility] Co de Phone Number [facility] ACCOUNT BILL [address] [place] [address] from Last 3 Months or Most Recently Relevant to Health Maintenance Insurance [facility] Care Teams Cost Control Specialist Relationship Specialty [place] [address] [address] [place] [address] PCP - General Family Medicine 09/13/16 [place] [address] [place] [address] Flute Grinder Obstetrics and Gynecology 10/23/12
--- OUTSIDE RECORDS SUMMARY | 2024-12-26 10:46 | XMS_ITS | Encounter Summary ---
Author Organization [employer] Address [address] [place] [address] Care Team Providers Care Diplomatic Interpreter Name Role Phone Frida Hurtado MD Primary Care Provider [phone] Encounter Details Date Type Department Care Team (Latest Contact Info) Description 01/10/1999 Inpatient Historical HIS PATIENT IN A BED [place], Mireya Deborah, [facility] First-degree perineal laceration, with delivery (Primary Dx) Social History Tobacco Use Types Packs/Day Years Used Date Smoking Tobacco: Never Assessed Comments Unknown Sex and Gender Information Value Date Recorded Sex Assigned at Not on file Legal Sex Female 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
[2024-12-28 10:08] LABS: Prolactin 7.4 ng/mL
== END 2024-12-26 10:24 | disposition home or self-care (01) ==
LOC: ANHLAB 10:25
PROVIDERS: PCP Family Medicine; Visit Provider Student in an Organized Health Care Education/Training Program
DX: N64.52 Nipple discharge (principal)
CPT/HCPCS: 36415; 76641; 77062; 77066; 84146; G0279